=== PATIENT | female | born 1960 | race African-American/Black ===

== ENCOUNTER 2019-07-23 09:23 | Outpatient (CLI) | payer MEDICARE ==
[2019-07-23] MEDS ORDERED: Iopamidol 370 76% 100 ML VIAL ONE (11:32)
--- NOTE | 2019-07-23 11:49 | CT ---
CT ANGIOGRAM OF THE ABDOMEN, PELVIS, AND BILATERAL LOWER EXTREMITIES CT RUNOFF PROCEDURE: DATE: 07/23/2019. COMPARISON: None available. HISTORY: Necrosis of amputation stump, nonhealing wound. TECHNIQUE: Axial CT imaging at 2.5 mm intervals from lung bases through bilateral lower extremities with IV cont rast using a CT angiogram protocol. Coronal and sagittal 3D reformatted imaging obtained. FINDINGS: Visualized lung bases demonstrate mild patchy opacity within the left base suggesting scar and/or vol ume loss. No free intraperitoneal air or fluid is seen. Increased density is seen layering dependently within the gallbladder suggesting stones and/or sludge . The liver, spleen, pancreas, adrenal glands, and kidneys demonstrate no acute findings. Limited assessment of the bowel without oral contrast media appears grossly unremarkable. The uterus appears enlarged and lobulated, likely on the basis of uterine fibroid disease. The left o vary appears enlarged when compared to the right and there is a questionable hypodense lesion within the left ovary measuring 3-4 cm. Recommend followup pelvic ultrasound. No lymphadenopathy is evident within the abdomen/pelvis. The abdominal aorta demonstrates no evidence for aneurysm or dissection. Relatively mild scattered at herosclerotic plaque of the abdominal aorta noted. No hemodynamically significant stenosis is seen involving the origin of either renal artery, the orig in of the inferior mesenteric artery, the origin of the superior mesenteric artery, or the origin of the celiac axis. There is mild stenosis suspected at the origin of the left renal artery on the ba sis of partially calcified plaque. The common iliac artery is unremarkable bilaterally. Bilateral internal iliac arteries are patent. Th e external iliac artery bilaterally is unremarkable. Left lower extremity: The patient is status post above-knee amputation. There is prominent subcutaneo us stranding and skin thickening at the amputation site, extending through the stump. There is a prominent area of skin ulceration at the distal tip of the stump extending into the subcutaneous fat consistent with the patient's history of nonhealing wound. There is a small amount of fluid abutting the cortex of the distal residual femur at the amputation site, most prominent laterally, be st seen on axial image [id number], measuring up to 3.5 x 1.4 cm. This could represent an infected or sterile postoperative fluid collection abutting the bone in this region. Left common femoral artery is grossly unremarkable. Left profunda femoral artery is patent and demons trate multifocal distal atherosclerotic calcification. The left superficial femoral artery is patent but heavily diseased with numerous areas of mild to mod erate stenosis on the basis of scattered atherosclerotic calcification. The distalmost aspect of the left superficial femoral artery in the region of the amputation site is occluded, this occlusion occurring approximately 3.5-4 cm proximal to the distal aspect of the residual left femur. Right lower extremity: Right common femoral artery and profunda femoral artery are patent. There is m ultifocal atherosclerotic calcification involving the right profunda femoral artery. Right superficial femoral artery is patent and demonstrates no focal area of high-grade stenosis. The re is multifocal mild/moderate mid and distal SFA stenosis on the basis of atherosclerotic calcification. There is moderate scattered partially calcified plaque within the patent right poplite al artery. The right anterior tibial artery is heavily diseased but appears patent to the level of the foot. The posterior tibial artery appears patent to the foot on the right as well. The peroneal artery on the right appears patent to the level the ankle. Stranding of the subcutaneous fat in the region of t he right calf and posterior distal thigh may signify nonspecific mild edema. Review of the osseous structures demonstrates multilevel lumbar spine degenerative change with promin ent bilateral lower lumbar spine facet hypertrophy. No worrisome lytic or blastic bone lesions are noted within the imaged osseous structures. IMPRESSION: 1. Above knee amputation on the left. There is skin thickening and subcutaneous fat stranding at the postoperative site with a focal area of ulceration and subcutaneous gas. Findings are suspicious for cellulitis. Small fluid collection adjacent to the residual distal left femur right may represent an infected or sterile postoperative fluid collection. The distalmost aspect of the residual left superficial femoral artery is occluded. 2. Lobulated appearance of the uterus and mildly enlarged and hypodense left ovary for which pelvic ultrasound is advised. Hypodense left ovarian mass is a possibility. 3. Multifocal atherosclerotic disease as detailed above. 4. Probable gallstones and/or gallbladder sludge. CODE T Transcribed Date/Time: 07/23/2019 12:15 PM
== END 2019-07-23 09:24 | disposition home or self-care (01) ==
LOC: CT 09:23
PROVIDERS: ATTEND Thoracic Surgery (Cardiothoracic Vascular Surgery)
DX: T87.54 Necrosis of amputation stump, left lower extremity (principal); N85.2 Hypertrophy of uterus; I70.0 Atherosclerosis of aorta; R23.4 Changes in skin texture
CPT/HCPCS: 75635; Q9967